=== PATIENT | female | born 2000 | race Two or more races ===

== ENCOUNTER 2021-06-21 11:03 | Emergency (ER) | payer OTHER ==
[~2021-06-21] VITALS: Ht 137.2 cm; Wt 44.0 kg
[2021-06-21] MEDS ORDERED: PRENA1 TRUE CO1 EACH PO (11:11)
== END 2021-06-21 13:19 | disposition home or self-care (01) ==
LOC: ER 11:03
DX: O26.851 Spotting complicating pregnancy, first trimester (principal); Z3A.11 11 weeks gestation of pregnancy

== ENCOUNTER 2021-10-02 08:58 | Outpatient (CLI) | payer OTHER ==
[~2021-10-02 08:58] MED LIST: PRENA1 TRUE CO1 EACH PO
== END 2021-10-02 10:20 | disposition home or self-care (01) ==
LOC: PRENATAL 08:58
PROVIDERS: ATTEND Obstetrics & Gynecology Maternal & Fetal Medicine
DX: O26.879 Cervical shortening, unspecified trimester (principal); O35.0XX0 Maternal care for (suspected) central nervous system malformation in fetus, not applicable or unspecified; O26.859 Spotting complicating pregnancy, unspecified trimester